=== PATIENT | female | born 1950 | race African-American/Black ===

== ENCOUNTER → 2024-03-19 15:33 | Outpatient (REF) | payer OTHER, SELFPAY | LOC: RAD 15:33 | PROVIDERS: ATTENDING PHYSICIAN Family Medicine; REFERRING PHYSICIAN Chiropractor | DX: R26.9 Unspecified abnormalities of gait and mobility (principal); R42 Dizziness and giddiness | CPT/HCPCS: 70450 ==

== ENCOUNTER 2024-09-29 19:37 | Emergency (ER) | payer OTHER, SELFPAY ==
[2024-09-29] VITALS (7 sets, daily range): BP systolic 118–145; BP diastolic 65–89; BMI 32.1
[2024-09-29 20:33] LABS: Urine Albumin 3+ (Neg - Trace); Urine Bilirubin Negative (Negative); Urine Character Cloudy (Clear); Urine Color Amber; Urine Glucose Negative (Negative); Urine Ketone Negative (Negative); Urine Leukocyte 3+ (Negative); Urine Nitrite Negative (Negative); Urine Occult Blood 4+ (Negative); Urine Specific Gravity 1.015 (<1.030); Urine Urobilinogen Negative (Neg - 1+); Urine pH 6.5 (5.0-9.0)
[2024-09-29 20:35] LABS: % Basophils 0.3 % (0-2); % Eosinophils 2.1 % (0-6); % Immature Granulocytes 0.2 % (0-0.5); % Lymphocytes 47.1 % (20.5-51.1); % Monocytes 9.4 % (1.7-9.3); % Neutrophils 40.9 % (42.2-75.2); Absolute Eosinophils 0.1 10^3/uL (0-0.7); Absolute Lymphocytes 2.7 10^3/uL (1.2-3.4); Absolute Monocytes 0.5 10^3/uL (0.1-0.6); Absolute Neutrophils 2.3 10^3/uL (1.4-6.5); Hematocrit 40.8 % (37.0-47.0); Hemoglobin 13.1 g/dL (12.0-16.0); Mean Corp Hgb Conc. 32.1 g/dL (33.0-37.0); Mean Corpuscular Hgb 23.2 pg (27.0-31.0); Mean Corpuscular Volume 72.3 fL (81.0-99.0); Mean Platelet Volume 10.7 fL (7.4-10.4); Nucleated Red Blood Cells % 0 %; Platelet Count 255 10^3/uL (130-400); Red Blood Cell Count 5.64 10^6/uL (4.20-5.40); Red Cell Dist. Width 16.2 % (11.5-14.5); White Blood Cell Count 5.7 10^3/uL (4.8-10.8)
[2024-09-29 20:41] LABS: Urine Red Blood Cell >100 /HPF (0-2); Urine Squamous Cell None seen /LPF (Few)
[2024-09-29 20:50] LABS: ALT (SGPT) 17 U/L (0-35); AST (SGOT) 23 U/L (14-36); Albumin 4.3 g/dl (3.5-5.0); Alkaline Phosphatase 98 U/L (38-126); Blood Urea Nitrogen 21 mg/dl (7-17); Calcium 9.6 mg/dl (8.4-10.2); Carbon Dioxide 26 mmol/L (22-30); Chloride 105 mmol/L (98-107); Estimated Creatinine Clearance 38 ml/min; Glucose 111 mg/dl (70-99); Sodium 140 mmol/L (135-145); Total Bilirubin 0.5 mg/dl (0.2-1.3); Total Protein 7.7 g/dl (6.3-8.2); eGFR 47.21
--- NOTE | 2024-09-29 22:38 | ED.GENMED ---
History of Present Illness
General
Chief Complaint: Urinary Symptoms
Source: patient
Exam Limitations: none
Time Seen by Provider: 09/29/24 22:01
Nursing documentation reviewed up to this point in time: agreed with
History of Present Illness
History of Present Illness:
Patient is a 73-year-old female with history of stroke on Eliquis CHF A-fib ablation hypertension hyperlipidemia presents for hematuria. She started with hematuria 12 PM this afternoon. She describes this as pink-tinged no clots. She has no
associated dysuria nausea vomiting back pain abdominal pain fever chills. She does feel that she is emptying her bladder completely. She has had no prior history of hematuria. She has been on Eliquis since 2019 (when she had a cva).
Past History
Past History
ED Past Medical History: Arrthythmia (Atrial fib), CVA (left MCA 2018), HTN, Hypercholesterolemia and Other (significant left vertebral artery stenosis)
ED Past Surgical History: Orthopedic
Social History
Tobacco: Non-smoker
Alcohol: None
Drug: None
Personal:
Living: alone
Employment: Employed
Family History
Family History: Other (reviewed and noncontributory)
Review of Systems
Review of Systems
Allergies reviewed?: Yes
All Other Systems: ROS reviewed and negative except as documented in HPI and ROS
Constitutional: Reports no symptoms; Denies fever, fatigue or chills
Respiratory: Reports no symptoms
Cardiac: Reports no symptoms
ABD/GI: Reports no symptoms; Denies abdominal pain, nausea or vomiting
: Reports bleeding; Denies dysuria, frequency, flank pain, incontinence, urgency or discharge
Musculoskeletal: Reports no symptoms
Skin: Reports no symptoms
Neurological: Reports no symptoms
Psychiatric: Reports no symptoms
Phy Exam
General Physical Exam
General Presentation: no apparent distress
General age: appears stated age
General Skin: warm and dry
General Habitus: normal
General Mental: alert
General Hydration: appears well hydrated
Cardiovascular Exam
Cardiovascular Exam: regular rate/rhythm, no murmur and normal peripheral pulses
Pulmonary Exam
Pulmonary Exam: lungs clear and no respiratory distress
Gastrointestinal Exam
Gastrointestinal Exam: soft and other (no suprapubic tenderness )
Neurological Exam
Neurological Exam: alert and oriented x3
Musculoskeletal Exam
Musculoskeletal Exam: full ROM
Skin Exam
Skin Exam: normal color and warm/dry
Psychiatric Exam
Psychiatric Exam: normal mood/affect
Course
Orders/Labs/Results
Orders:
Orders
09/29/24 20:13
CBC/With Diff [Complete Blood Count/With Diff] Urgent
Comprehensive Metabolic Panel Urgent
Urinalysis Reflex To Culture Urgent
Date Specimen was Collected: 09/29/24
Time Specimen was Collected: 19:40
Urine Microscopic Reflex Cult Urgent
Urine Culture Urgent
DOREEN Source: U
Specimen Description:
Date Specimen was Collected: 09/29/24
Time Specimen was Collected: 19:40
09/29/24 23:24
Fosfomycin [Monurol] 3 gm PO ONCE ONE
Abnormal Lab Results
09/29/24
20:13
RBC 5.64 H 10^6/uL
(4.20-5.40)
MCV 72.3 L fL
(81.0-99.0)
MCH 23.2 L pg
(27.0-31.0)
MCHC 32.1 L g/dL
(33.0-37.0)
RDW 16.2 H %
(11.5-14.5)
MPV 10.7 H fL
(7.4-10.4)
Neutrophils % 40.9 L %
(42.2-75.2)
Monocytes % 9.4 H %
(1.7-9.3)
BUN 21 H mg/dl
(7-17)
Creatinine 1.2 H mg/dL
(0.6-1.0)
Glucose 111 H mg/dl
(70-99)
Ur Occult Blood Reflex 4+ A
(Negative)
Leukocyte Esterase Rfl 3+ A
(Negative)
Urine RBC >100 A /HPF
(0-2)
Urine Albumin (Reflex) 3+ A
(Neg - Trace)
09/29/24 20:13
09/29/24 20:13
Vital Signs
Initial and Last Documented VS:
Initial Vital Signs
Temp Pulse Resp BP Pulse Ox
98 F 83 20 145/89 96
09/29/24 19:52 09/29/24 19:52 09/29/24 19:52 09/29/24 19:52 09/29/24 19:52
Last Documented Vital Signs
Temp Pulse Resp BP Pulse Ox
98 F 87 20 127/71 98
09/29/24 19:52 09/29/24 20:41 09/29/24 19:52 09/29/24 23:00 09/29/24 23:45
Web Application Developer consulted with Physician
Web Application Developer consulted with physician?: Yes
Name of Physician Consulted: Mary
MDM/Problems Addressed
Differential Diagnosis Includes:
not limited to: hematuria, uti
MDM/Problems Addressed:
Patient with hematuria since 12 PM no other symptoms. she is on Eliquis. Urinalysis shows greater than 100/hpf RBCs with 3+ leuks.
Hematuria is pink-tinged no clots as per patient. She is in no acute distress pt is well-appearing.
Patient with no abdominal pain nausea vomiting no fever chills. Abdomen soft nontender she does feel that she is emptying her bladder normally discussed return if any worsening of symptoms.
Will cover with antibiotics(patient is allergic to cephalosporins other antibiotics considered however with patient's age will order one-time dose of fosfomycin) with close follow-up with family doctor and urology. pt to continue on eliquis
Chronic conditions affecting care:
eliquis for cva history
*Critical Care Note
Total Time (30-74mins, 75-104mins- exclusive of procedures): Not Applicable
ED Attending Note
-
Portions of this chart may have been created with voice recognition software.� Occasional wrong word or��sound alike� substitutions may have occurred due to the inherent limitations of voice recognition software.
Discharge Plan
Departure
Patient Disposition: Home (Routine Discharge)
Date of Disposition: 09/29/24
Time of Disposition: 23:24
Patient with high blood pressure during this ER visit?: Yes
Covid-19: Not Applicable
Discharge Problem:
Hematuria
Instructions: Blood in the Urine (Hematuria), Adult (DC), BLOOD PRESSURE
Prescriptions:
No Action
amlodipine 5 MG tablet
5 mg PO DAILY Qty: 30 11RF
ascorbic acid (vitamin C) [Vitamin C] 1,000 MG tablet
500 mg PO BID
lorazepam 0.5 mg Tablet
0.5 mg PO BID PRN (Reason: anxiety)
Patient Comments:
04/06/2023: last filled , 30 tabs for 15 days from [facility]
cyanocobalamin (vitamin B-12) [Vitamin B-12] 1,000 mcg Tablet
1,000 mcg PO DAILY
pyridoxine (vitamin B6) [Vitamin B-6] 50 mg Tablet
50 mg PO DAILY
irbesartan 150 mg tablet
150 mg PO QPM
Medical Marijuana
1 drp PO DAILY PRN (Reason: anxiety)
Patient Comments:
05/26/2022: Pt uses a tintcure; [facility] [phone]
lutein-zeaxanthin 25-5 mg Capsule
1 cap PO DAILY
carvedilol 12.5 mg tablet
12.5 mg PO BID
furosemide 40 MG tablet
40 mg PO DAILY PRN (Reason: when working @ home [ankle edema])
cholecalciferol (vitamin D3) [Vitamin D3] 25 mcg (1,000 unit) Capsule
25 mcg PO DAILY
ezetimibe 10 MG tablet
10 mg PO HS
Eliquis 5 MG tablet
5 mg PO BID
prednisolone acetate 1 % drops,suspension
1 drp BOTH EYES DAILY
Rx Instructions:
04/29/23 x one month
Referrals:
Bharat Olmos MD [Active] -
Clay Gudino DO [Family Provider] -
Activity Restrictions/Additional Instructions:
As discussed you have blood in your urine. You were treated for possible infection. You are given a one-time dose of antibiotic called fosfomycin.
Stay well-hydrated. Call urology tomorrow for appointment as soon as possible. Return if any worsening of symptoms of worsening blood in urine nausea vomiting fever chills abdominal pain back pain or any further concerns.You may continue Eliquis
at this time
Interventions
Interventions:
*Risk Screen - Suicide Last Done: 09/29/24 19:52
*General Assessment Last Done: 09/29/24 19:52
*Neglect/Abuse Screening Last Done: 09/29/24 19:52
*ED- Fall Risk Assessment Last Done: 09/29/24 19:52
*ED COVID-19 Vaccine History Last Done: 09/29/24 19:52
ED-Female Genitourinary Assessment Last Done: 09/29/24 20:42
Discharge Date and Time
Print Language: TURKISH
[2024-09-29] MEDS: MONUROL 3 GM PO (23:53)
== END 2024-09-30 00:05 | disposition home or self-care (01) ==
LOC: EMR 19:37
PROVIDERS: Emergency Medicine; EMERGENCY PHYSICIAN Emergency Medicine; FAMILY PHYSICIAN Family Medicine
DX: R31.9 Hematuria, unspecified (principal); I11.0 Hypertensive heart disease with heart failure; I50.9 Heart failure, unspecified; E78.00 Pure hypercholesterolemia, unspecified; Z86.73 Personal history of transient ischemic attack (TIA), and cerebral infarction without residual deficits; Z79.01 Long term (current) use of anticoagulants
CPT/HCPCS: 99283; 80053; 81003; 81015; 85025; 87086

== ENCOUNTER 2024-10-02 08:20 | Emergency (ER) | payer OTHER, SELFPAY ==
[2024-10-02] VITALS (9 sets, daily range): BP systolic 105–166; BP diastolic 53–91; BMI 31.8
--- NOTE | 2024-10-02 08:53 | EDRN ---
Dr. Ellington in room w/ pt at this time.
--- NOTE | 2024-10-02 08:58 | ED.GENMED ---
History of Present Illness
General
Chief Complaint: Flank Pain
Source: patient and family
Exam Limitations: none
Time Seen by Provider: 10/02/24 08:48
Nursing documentation reviewed up to this point in time: agreed with
History of Present Illness
History of Present Illness:
73-year-old female presents emergency department due to right flank pain that began 2 hours ago. She was seen on Monday for hematuria. She was treated with fosfomycin discharge. She stopped her Eliquis for 1 day. She denies any further bleeding.
No nausea vomiting or fevers.
Past History
Past History
ED Past Medical History: Arrthythmia (Atrial fib), CVA (left MCA 2019), HTN, Hypercholesterolemia and Other (significant left vertebral artery stenosis)
ED Past Surgical History: Gynecological (Hysterectomy), Orthopedic and Tonsilectomy
Social History
Tobacco: Non-smoker
Alcohol: None
Drug: None
Personal:
Living: alone
Employment: Employed
Family History
Family History: Other (reviewed and noncontributory)
Review of Systems
Review of Systems
Allergies reviewed?: Yes
All Other Systems: Not applicable
Constitutional: Reports no symptoms
EENT: Reports no symptoms
Respiratory: Reports no symptoms
Cardiac: Reports no symptoms
ABD/GI: Reports no symptoms
: Reports flank pain
Musculoskeletal: Reports no symptoms
Skin: Reports no symptoms
Neurological: Reports no symptoms
Endocrine: Reports no symptoms
Hematologic/Lymphatic: Reports no symptoms
Psychiatric: Reports no symptoms
Phy Exam
Physical Exam
Physical Exam:
Physical Exam
General: no apparent distress, not acutely ill
Neck: supple. no meningeal signs. normal posterior pharynx
Heart: s1/s2 regular rate and rhythm, no murmur. equal radial
pulses.
HEENT: Pupils equal round reactive to light, EOMI
Lungs: no acute respiratory distress. clear bilaterally
Abdomen: normal bowel sounds. not tender. no CVAT
Neuro: alert and oriented. no focal neurological deficits cranial nerves II through XII intact
Skin: no rash
Psychiatric: well kept. interactive and cooperative
Extremities: no edema. no calf tenderness. negative homans. good distal pulses
Scores
Heart Score for Chest Pain Patients
STEMI patient?: No
History: Slightly or Non-Suspicious
ECG: Nonspecific Repolarization
Age: >/= 65 years
Risk Factors: 1 or 2 Risk Factors
Troponin: </= Normal Limit
Heart Score for Chest Pain Patients: 4
Heart Score Risk: 20.3% MACE over next 6 weeks
Course
Orders/Labs/Results
Orders:
Orders
10/02/24 08:51
CT Abd/pel Without Iv Or Oral Urgent
Comment:
Reason For Exam: right flank pain
IV Insert/Care/Rem.- Treatment PRN
Urinalysis Reflex To Culture Urgent
Date Specimen was Collected: 10/02/24
Time Specimen was Collected: 09:04
10/02/24 09:30
Complete Blood Count/With Diff Urgent
Comprehensive Metabolic Panel Urgent
10/02/24 09:37
Morphine Sulfate 4 mg IV NOW STA
Ondansetron Injectable [Zofran] 4 mg IV NOW STA
10/02/24 09:38
Morphine Sulfate 4 mg .ROUTE .STK-MED ONE
Ondansetron Injectable [Zofran] 4 mg .ROUTE .STK-MED ONE
10/02/24 10:31
EKG [Electrocardiogram (*1)] Urgent
Reason for Study: Chest Pain
EKG- Treatment ONCE
10/02/24 10:46
Troponin I Urgent
10/02/24 12:24
Urinalysis Reflex To Culture Urgent
Date Specimen was Collected: 10/02/24
Time Specimen was Collected: 12:22
Urine Microscopic Reflex Cult Urgent
Urine Culture Urgent
DOREEN Source: U
Specimen Description:
Date Specimen was Collected: 10/02/24
Time Specimen was Collected: 12:22
10/02/24 12:27
EKG- Treatment ONCE
10/02/24 13:41
Troponin I Urgent
10/02/24 13:45
Electrocardiogram (*1) Urgent
Reason for Study: Chest Pain
Abnormal Lab Results
10/02/24 10/02/24
09:30 12:24
RBC 5.63 H 10^6/uL
(4.20-5.40)
MCV 73.4 L fL
(81.0-99.0)
MCH 23.1 L pg
(27.0-31.0)
MCHC 31.5 L g/dL
(33.0-37.0)
RDW 16.3 H %
(11.5-14.5)
Lymphocytes % 19.9 L %
(20.5-51.1)
Glucose 132 H mg/dl
(70-99)
Urine Ketones 1+ A
(Negative)
Ur Occult Blood Reflex 4+ A
(Negative)
Leukocyte Esterase Rfl 2+ A
(Negative)
Urine RBC >100 A /HPF
(0-2)
Urine Albumin (Reflex) 2+ A
(Neg - Trace)
10/02/24 09:30
10/02/24 09:30
Vital Signs
Initial and Last Documented VS:
Initial Vital Signs
Temp Pulse Resp BP Pulse Ox
98.2 F 76 18 166/91 98
10/02/24 08:23 10/02/24 08:23 10/02/24 08:23 10/02/24 08:23 10/02/24 08:23
Last Documented Vital Signs
Temp Pulse Resp BP Pulse Ox
98.2 F 67 19 131/75 93
10/02/24 08:23 10/02/24 14:00 10/02/24 14:00 10/02/24 14:00 10/02/24 14:00
MDM/Problems Addressed
Differential Diagnosis Includes:
ACS, PE, kidney stone, UTI
MDM/Problems Addressed:
73-year-old female with right ureteral calculus, no signs UTI. Patient had episode of about 1 to 2 minutes of chest pressure. Dissipated without intervention. Serial troponins negative. Patient feels well and will follow-up with cardiology.
Chest pain hotline.
Chronic conditions affecting care: Arrhythmia
*Radiology
Radiology exam reviewed: radiology read reviewed (CT abdomen pelvis shows mild right hydronephrosis secondary to 5 mm right UVJ stone, benign bilateral adrenal hyperplasia, moderate fecal material)
*Pulse Oximetry
Patient hypoxic: no
*EKG
Interpreted by ED Provider?: Yes
EKG Intrepretation Date: 10/02/24
EKG Intrepretation Time: 10:38
Interpretation: abnormal
Comparison EKG: no changes
Heart Rate: 66
Rate: normal
Rhythm: sinus and PVC's
[place]: normal axis
Interval: normal interval
QRS Pattern: left vent hypertrophy
Ischemia: no ischemia
*[facility] Staff Nurse Interpretation
Rate: normal
Interpretation: normal
Heart Rate: 67
Rhythm: sinus
*Critical Care Note
Total Time (30-74mins, 75-104mins- exclusive of procedures): Not Applicable
Data Reviewed
Review of Other/Old Records Reveals: Labs (Creatinine 1.2 on 09/29/2024, multiple negative troponins)
Source: records
Further Testing Considered But Not Given:
CT chest not indicated
Patient Management
Social determinants of health affecting care: Living situation and Strong social support
Escalation/DeEscalation of care consider admission/obs:
Admit not indicated
ED Attending Note
-
Portions of this chart may have been created with voice recognition software.� Occasional wrong word or��sound alike� substitutions may have occurred due to the inherent limitations of voice recognition software.
Discharge Plan
Departure
Patient Disposition: Home (Routine Discharge)
Date of Disposition: 10/02/24
Time of Disposition: 14:26
Patient with high blood pressure during this ER visit?: Yes
Condition: Good
Discharge Problem:
Calculus of distal right ureter, Chest pain
Instructions: Kidney Stones (DC), How to Strain Your Urine, Chest Pain DCA Follow Up, BLOOD PRESSURE
Prescriptions:
No Action
amlodipine 5 MG tablet
5 mg PO DAILY Qty: 30 11RF
lorazepam 0.5 mg Tablet
0.5 mg PO DAILYPRN PRN (Reason: anxiety)
cyanocobalamin (vitamin B-12) [Vitamin B-12] 1,000 mcg Tablet
1,000 mcg PO DAILY
pyridoxine (vitamin B6) [Vitamin B-6] 50 mg Tablet
50 mg PO DAILY
irbesartan 150 mg tablet
150 mg PO QPM
furosemide 40 MG tablet
40 mg PO Q48H
ezetimibe 10 MG tablet
10 mg PO HS
Eliquis 5 MG tablet
5 mg PO BID
carvedilol 12.5 mg Tablet
12.5 mg PO BID
valacyclovir 1 gram Tablet
1,000 mg PO BID
Rx Instructions:
for 7 days starting 09/08/24
ascorbic acid (vitamin C) [Vitamin C] 500 mg Tablet
500 mg PO BID
cholecalciferol (vitamin D3) [Vitamin D3] 25 mcg (1,000 unit) Tablet
25 mcg PO DAILY
Systane Complete 0.6 % Drops
1 drp BOTH EYES TID
lutein-zeaxanthin 20 mg- 1,000 mcg Capsule
1 cap PO BID
Medical Marijuana Stick Rub
1 applic topical DAILYPRN PRN (Reason: top of knees)
acetaminophen 500 mg Tablet
1,000 mg PO Q6HPRN PRN (Reason: head ache)
Referrals:
Clay Gudino, DO [Family Provider] -
Stand Alone Forms: Return to Work
Interventions
Interventions:
*Risk Screen - Suicide Last Done: 10/02/24 09:30
*General Assessment Last Done: 10/02/24 09:30
*Neglect/Abuse Screening Last Done: 10/02/24 09:30
*ED- Fall Risk Assessment Last Done: 10/02/24 09:30
*ED COVID-19 Vaccine History Last Done: 10/02/24 09:30
*Nursing Disposition Last Done: 10/02/24 14:58
RV-Gxlgth-Vqdghcbetx Assessment Last Done: 10/02/24 09:30
ED-Female Genitourinary Assessment Last Done: 10/02/24 09:30
Discharge Date and Time
Discharge Date/Time: 10/02/24 14:58
Print Language: SLOVAK
[2024-10-02 09:40] LABS: % Basophils 0.6 % (0-2); % Eosinophils 0.4 % (0-6); % Immature Granulocytes 0.1 % (0-0.5); % Lymphocytes 19.9 % (20.5-51.1); % Monocytes 6.1 % (1.7-9.3); % Neutrophils 72.9 % (42.2-75.2); Absolute Lymphocytes 1.4 10^3/uL (1.2-3.4); Absolute Monocytes 0.4 10^3/uL (0.1-0.6); Absolute Neutrophils 5.1 10^3/uL (1.4-6.5); Hematocrit 41.3 % (37.0-47.0); Mean Corp Hgb Conc. 31.5 g/dL (33.0-37.0); Mean Corpuscular Hgb 23.1 pg (27.0-31.0); Mean Corpuscular Volume 73.4 fL (81.0-99.0); Mean Platelet Volume 10.3 fL (7.4-10.4); Nucleated Red Blood Cells % 0 %; Platelet Count 253 10^3/uL (130-400); Red Blood Cell Count 5.63 10^6/uL (4.20-5.40); Red Cell Dist. Width 16.3 % (11.5-14.5)
[2024-10-02] MEDS: MORPHINE SULFATE 4 MG IV (09:44)
[2024-10-02] MEDS: ZOFRAN 4 MG IV (09:44)
[2024-10-02 09:51] LABS: ALT (SGPT) 18 U/L (0-35); AST (SGOT) 24 U/L (14-36); Alkaline Phosphatase 115 U/L (38-126); Blood Urea Nitrogen 16 mg/dl (7-17); Calcium 9.5 mg/dl (8.4-10.2); Carbon Dioxide 29 mmol/L (22-30); Chloride 107 mmol/L (98-107); Glucose 132 mg/dl (70-99); Potassium 3.9 mmol/L (3.5-5.1); Sodium 143 mmol/L (135-145); Total Bilirubin 0.6 mg/dl (0.2-1.3); Total Protein 7.2 g/dl (6.3-8.2); eGFR > 60.00
--- NOTE | 2024-10-02 10:07 | EDRN ---
Urine quantity in spec not enough so this RN requested another spec from pt.
--- NOTE | 2024-10-02 10:50 | EDRN ---
This nurse received report on pt that developed chest pain at devin 10:30 that was a 9/10, substernal and heavy. Troponin drawn and EKG done at that time by Rui. Pt placed on potline monitor., This RN saw pt at 10:50 and pain was 4/10,
still heavy and substernal. Daughter by brandoner. R flank pain remains at 2/10.
[2024-10-02 11:24] LABS: Troponin I < 0.012 ng/ml
[2024-10-02 13:19] LABS: Urine Albumin 2+ (Neg - Trace); Urine Bilirubin Negative (Negative); Urine Character Slightly Cloudy (Clear); Urine Color Yellow; Urine Glucose Negative (Negative); Urine Ketone 1+ (Negative); Urine Leukocyte 2+ (Negative); Urine Nitrite Negative (Negative); Urine Occult Blood 4+ (Negative); Urine Urobilinogen Negative (Neg - 1+)
[2024-10-02 14:12] LABS: Troponin I 0.012 ng/ml
--- NOTE | 2024-10-02 14:13 | EDRN ---
Pt given water after asking Dr. Ellington if okay. Pt is awaiting repeat trop.
[2024-10-02 14:15] LABS: Urine Amorphous Seen; Urine Squamous Cell 26-30 /LPF (Few)
[2024-10-02 14:16] LABS: Urine Mucus Few
[2024-10-02 14:17] LABS: Urine Red Blood Cell >100 /HPF (0-2)
== END 2024-10-02 14:58 | disposition home or self-care (01) ==
LOC: EMR 08:20
PROVIDERS: EMERGENCY PHYSICIAN Emergency Medicine; FAMILY PHYSICIAN Family Medicine
DX: N13.2 Hydronephrosis with renal and ureteral calculous obstruction (principal); R07.89 Other chest pain; I10 Essential (primary) hypertension
CPT/HCPCS: 99285; 96374; 96375; 74176; 80053; 81003; 81015; 84484; 85025; 87086; 93005

== ENCOUNTER 2024-10-22 21:44 | Emergency (ER) | payer OTHER, SELFPAY ==
[2024-10-22] VITALS (7 sets, daily range): BP systolic 137–167; BP diastolic 68–91; PULSE 68–85; BMI 34.5
[2024-10-22 22:09] LABS: Hemoglobin 12.8 g/dL (12.0-16.0); Mean Corpuscular Hgb 23.5 pg (27.0-31.0); Mean Corpuscular Volume 73.4 fL (81.0-99.0); Mean Platelet Volume 10.4 fL (7.4-10.4); Platelet Count 240 10^3/uL (130-400); Red Blood Cell Count 5.45 10^6/uL (4.20-5.40); White Blood Cell Count 5.7 10^3/uL (4.8-10.8)
[2024-10-22 22:23] LABS: ALT (SGPT) 23 U/L (0-35); AST (SGOT) 33 U/L (14-36); Alkaline Phosphatase 115 U/L (38-126); Blood Urea Nitrogen 18 mg/dl (7-17); Calcium 9.7 mg/dl (8.4-10.2); Carbon Dioxide 30 mmol/L (22-30); Chloride 105 mmol/L (98-107); Estimated Creatinine Clearance 57 ml/min; Glucose 119 mg/dl (70-99); Potassium 4.7 mmol/L (3.5-5.1); Sodium 140 mmol/L (135-145); Total Bilirubin 0.6 mg/dl (0.2-1.3); Total Protein 7.8 g/dl (6.3-8.2); eGFR > 60.00
[2024-10-22 22:30] LABS: Troponin I < 0.012 ng/ml
--- NOTE | 2024-10-22 22:31 | ED.GENMED ---
History of Present Illness
<GENOVEVA Dominguez - Last Filed: 10/23/24 16:16>
General
Chief Complaint: Dizziness
Source: patient
Time Seen by Provider: 10/22/24 21:46
Nursing documentation reviewed up to this point in time: agreed with
History of Present Illness
History of Present Illness:
Patient is a 73-year-old female who presents to the ER for evaluation of dizziness. Patient reports around 1:30 PM she had an episode of lightheadedness/dizziness when she was getting out of the car but that quickly resolved. She reports this
evening she had another episode while standing up from a chair. She reports she felt spinning but the room was not necessarily spinning and she felt a little' off,' when she walks. She had no associated headache blurry vision nausea vomiting chest
pain shortness of breath.
She did have a regular family doctor appointment today and mentioned the dizziness to her doctor however had no episodes at office.
She does report that she has had vertigo but this felt different.
Past History
<GENOVEVA Dominguez - Last Filed: 10/23/24 16:16>
Past History
ED Past Medical History: Arrthythmia (Atrial fib), CVA (left MCA 2019), HTN, Hypercholesterolemia and Other (significant left vertebral artery stenosis)
ED Past Surgical History: Gynecological (Hysterectomy), Orthopedic and Tonsilectomy
Social History
Tobacco: Non-smoker
Alcohol: None
Drug: None
Personal:
Living: alone
Employment: Employed
Family History
Family History: Other (reviewed and noncontributory)
Review of Systems
<GENOVEVA Dominguez - Last Filed: 10/23/24 16:16>
Review of Systems
All Other Systems: ROS reviewed and negative except as documented in HPI and ROS
Constitutional: Reports no symptoms
Respiratory: Reports no symptoms
Cardiac: Reports no symptoms
ABD/GI: Reports no symptoms
: Reports no symptoms
Skin: Reports no symptoms
Neurological: Reports dizzy; Denies headache, weakness or numbness
Hematologic/Lymphatic: Reports no symptoms
Psychiatric: Reports no symptoms
Phy Exam
<GENOVEVA Dominguez - Last Filed: 10/23/24 16:16>
General Physical Exam
General Presentation: no apparent distress
General age: appears stated age
General Skin: warm and dry
General Habitus: normal
General Mental: alert
General Hydration: appears well hydrated
Cardiovascular Exam
Cardiovascular Exam: regular rate/rhythm, no murmur and normal peripheral pulses
Pulmonary Exam
Pulmonary Exam: lungs clear and no respiratory distress
Neurological Exam
Neurological Exam: alert, oriented x3, no motor deficits, no sensory deficits and speech normal
[place] Coma Scale
Eye Opening: Spontaneous
Verbal Response: Oriented
Motor Response: Obeys Commands
GCS Total Score: 15
Cerebellar
Cerebellar Function: normal finger to nose
Musculoskeletal Exam
Musculoskeletal Exam: full ROM
Skin Exam
Skin Exam: normal color and warm/dry
Course
<GENOVEVA Dominguez - Last Filed: 10/23/24 16:16>
Orders/Labs/Results
Orders:
Orders
10/22/24 21:46
Electrocardiogram (*1) Urgent
Reason for Study: Vertigo / Dizzy
EKG- Treatment ONCE
10/22/24 21:57
Complete Blood Count/With Diff Urgent
Comprehensive Metabolic Panel Urgent
Troponin I Urgent
10/22/24 23:52
Orthostatic VS- Treatment ONCE
10/23/24 00:20
Urinalysis Reflex To Culture Urgent
Date Specimen was Collected: 10/23/24
Time Specimen was Collected: 00:17
Urine Microscopic Reflex Cult Urgent
Urine Culture Urgent
DOREEN Source: U
Specimen Description:
Date Specimen was Collected: 10/23/24
Time Specimen was Collected: 00:17
10/23/24 01:04
CT Head W/o Iv Contrast Urgent
Comment:
Reason For Exam: dizzy
10/23/24 01:31
0.9% Sodium Chloride 500 ml [Nss] 500 ml IV BOLUS
Abnormal Lab Results
10/22/24 10/23/24
21:57 00:20
RBC 5.45 H 10^6/uL
(4.20-5.40)
MCV 73.4 L fL
(81.0-99.0)
MCH 23.5 L pg
(27.0-31.0)
MCHC 32.0 L g/dL
(33.0-37.0)
RDW 16.0 H %
(11.5-14.5)
Neutrophils % 35.7 L %
(42.2-75.2)
Lymphocytes % 51.2 H %
(20.5-51.1)
Monocytes % 9.6 H %
(1.7-9.3)
BUN 18 H mg/dl
(7-17)
Glucose 119 H mg/dl
(70-99)
Ur Occult Blood Reflex 1+ A
(Negative)
Leukocyte Esterase Rfl 1+ A
(Negative)
Urine RBC 3-6 A /HPF
(0-2)
Urine Bacteria (Reflex) Few A
(Negative)
10/22/24 21:57
10/22/24 21:57
Vital Signs
Initial and Last Documented VS:
Initial Vital Signs
Temp Pulse Resp BP Pulse Ox
97.8 F 73 24 167/91 98
10/22/24 21:47 10/22/24 21:47 10/22/24 21:47 10/22/24 21:47 10/22/24 21:47
Last Documented Vital Signs
Temp Pulse Resp BP Pulse Ox
97.8 F 64 13 145/69 98
10/22/24 21:47 10/23/24 02:00 10/23/24 02:15 10/23/24 02:00 10/23/24 02:15
[employer] Grade Teacher consulted with Physician
[employer] Grade Teacher consulted with physician?: Yes
Name of Physician Consulted: [email or web address]
<Vida Perez MD - Last Filed: 10/23/24 02:34>
Orders/Labs/Results
Orders:
Orders
10/22/24 21:46
Electrocardiogram (*1) Urgent
Reason for Study: Vertigo / Dizzy
EKG- Treatment ONCE
10/22/24 21:57
Complete Blood Count/With Diff Urgent
Comprehensive Metabolic Panel Urgent
Troponin I Urgent
10/22/24 23:52
Orthostatic VS- Treatment ONCE
10/23/24 00:20
Urinalysis Reflex To Culture Urgent
Date Specimen was Collected: 10/23/24
Time Specimen was Collected: 00:17
Urine Microscopic Reflex Cult Urgent
Urine Culture Urgent
DOREEN Source: U
Specimen Description:
Date Specimen was Collected: 10/23/24
Time Specimen was Collected: 00:17
10/23/24 01:04
CT Head W/o Iv Contrast Urgent
Comment:
Reason For Exam: dizzy
10/23/24 01:31
0.9% Sodium Chloride 500 ml [Nss] 500 ml IV BOLUS
Abnormal Lab Results
10/22/24 10/23/24
21:57 00:20
RBC 5.45 H 10^6/uL
(4.20-5.40)
MCV 73.4 L fL
(81.0-99.0)
MCH 23.5 L pg
(27.0-31.0)
MCHC 32.0 L g/dL
(33.0-37.0)
RDW 16.0 H %
(11.5-14.5)
Neutrophils % 35.7 L %
(42.2-75.2)
Lymphocytes % 51.2 H %
(20.5-51.1)
Monocytes % 9.6 H %
(1.7-9.3)
BUN 18 H mg/dl
(7-17)
Glucose 119 H mg/dl
(70-99)
Ur Occult Blood Reflex 1+ A
(Negative)
Leukocyte Esterase Rfl 1+ A
(Negative)
Urine RBC 3-6 A /HPF
(0-2)
Urine Bacteria (Reflex) Few A
(Negative)
10/22/24 21:57
10/22/24 21:57
Vital Signs
Initial and Last Documented VS:
Initial Vital Signs
Temp Pulse Resp BP Pulse Ox
97.8 F 73 24 167/91 98
10/22/24 21:47 10/22/24 21:47 10/22/24 21:47 10/22/24 21:47 10/22/24 21:47
Last Documented Vital Signs
Temp Pulse Resp BP Pulse Ox
97.8 F 64 13 145/69 98
10/22/24 21:47 10/23/24 02:00 10/23/24 02:15 10/23/24 02:00 10/23/24 02:15
<GENOVEVA Dominguez - Last Filed: 10/23/24 16:16>
MDM/Problems Addressed
MDM/Problems Addressed:
As documented patient is a 73-year-old female who complained of several episodes of dizziness with standing and changing positions. She initially had an episode prior to seeing her family doctor for regular visit today. At the appointment she had
no symptoms her physician was not concerned. She reports episode happened again after standing out of a chair. She denied an actual sensation that room was spinning she felt however simply dizzy and a little off balance. She had no associated
headache nausea vomiting blurred vision. She presented here feeling well and remained asymptomatic here in the ER. She does report she has a history vertigo in the past but this felt slightly different. Patient has a normal neurological exam
however will order ct.
Care of pt transferred to ED attending physician.
<GENOVEVA Dominguez - Last Filed: 10/23/24 16:16>
*Radiology
Radiology exam reviewed: radiology read reviewed
*Pulse Oximetry
Patient hypoxic: no
*EKG
Interpreted by ED Provider?: Yes
Heart Rate: 68
Rate: normal
Rhythm: sinus
Ischemia: no ischemia
*Critical Care Note
Total Time (30-74mins, 75-104mins- exclusive of procedures): Not Applicable
ED Attending Note
<GENOVEVA Dominguez - Last Filed: 10/23/24 16:16>
-
Portions of this chart may have been created with voice recognition software.� Occasional wrong word or��sound alike� substitutions may have occurred due to the inherent limitations of voice recognition software.
<Vida Perez MD - Last Filed: 10/23/24 02:34>
ED Attending Note
Patient seen and examined by attending physician: Yes
I performed the substantive portion of visit, reviewed & personally made and approve the management plan that is documented in note by myself or ANGELIA.: Yes
ED Attending Note:
I have seen and evaluated the patient with a [id number] encounter. I have spoken to the [MOTION PICTURE PHOTOGRAPHER] and involved in the medical history, the physical exam, medical decision making.
Evaluation and management service: agree unless noted differently below.
Results interpretation: agree unless noted differently below.
73-year-old woman with history of prior CVA presenting to the emergency department dizziness states that today she got up from her car and became lightheaded dizzy. The symptoms resolved. She then got up from a chair and noticed the same symptoms.
She did not pass out. She denies numbness tingling weakness or changes to her speech. She states that she only drinks 4 glasses of water a day maximum. She states that she to her primary care doctor who reassured her. On arrival here patient
states that the dizziness is much better. She denies a room spinning sensation. No numbness tingling. No weakness. No chest pain. On my evaluation patient is resting comfortably. She does have mildly dry oral mucosa but has equal strength in
upper and lower extremities with sensation intact and normal [id number]. This could be secondary to orthostatic. Considered posterior CVA though less likely. After shared decision making we will proceed with CT scan. Will give fluids and
reassess symptoms. If symptoms are ongoing despite fluids will admit for MRI and further evaluation.
Patient states symptoms have resolved after the fluids. She ambulated without any recurrent symptoms. CT preliminary read with no acute abnormality though old lacunar infarct in the bilateral basal ganglia. This finding was seen on the CT scan
from March 2024. Will discharge at this time. Patient advised to increase water intake. Patient will follow-up with PCP.
Discharge Plan
Departure
Patient Disposition: Home (Routine Discharge)
Date of Disposition: 10/23/24
Time of Disposition: 02:33
Patient with high blood pressure during this ER visit?: No
Discharge Problem:
Dizziness
Instructions: Dizziness
Prescriptions:
No Action
amlodipine 5 MG tablet
5 mg PO DAILY Qty: 30 11RF
lorazepam 0.5 mg Tablet
0.5 mg PO DAILYPRN PRN (Reason: anxiety)
cyanocobalamin (vitamin B-12) [Vitamin B-12] 1,000 mcg Tablet
1,000 mcg PO DAILY
pyridoxine (vitamin B6) [Vitamin B-6] 50 mg Tablet
50 mg PO DAILY
irbesartan 150 mg tablet
150 mg PO QPM
furosemide 40 MG tablet
40 mg PO Q48H
ezetimibe 10 MG tablet
10 mg PO HS
Eliquis 5 MG tablet
5 mg PO BID
carvedilol 12.5 mg Tablet
12.5 mg PO BID
ascorbic acid (vitamin C) [Vitamin C] 500 mg Tablet
500 mg PO BID
cholecalciferol (vitamin D3) [Vitamin D3] 25 mcg (1,000 unit) Tablet
25 mcg PO DAILY
Systane Complete 0.6 % Drops
1 drp BOTH EYES TID
lutein-zeaxanthin 20 mg- 1,000 mcg Capsule
1 cap PO BID
Medical Marijuana Stick Rub
1 applic topical DAILYPRN PRN (Reason: top of knees)
acetaminophen 500 mg Tablet
1,000 mg PO Q6HPRN PRN (Reason: head ache)
zinc
1 tab PO DAILY
Rx Instructions:
unsure of mg
Referrals:
Clay Gudino, [Family Provider] -
Stand Alone Forms: Return to Work
Interventions
Interventions:
*Risk Screen - Suicide Last Done: 10/22/24 21:50
*General Assessment Last Done: 10/22/24 21:50
*Neglect/Abuse Screening Last Done: 10/22/24 21:50
*ED- Fall Risk Assessment Last Done: 10/22/24 21:50
*ED COVID-19 Vaccine History Last Done: 10/22/24 21:50
*Nursing Disposition Last Done: 10/23/24 03:30
ED- Neurological Assessment Last Done: 10/23/24 02:10
ED- Cardiac Assessment Last Done: 10/23/24 02:10
Discharge Date and Time
Discharge Date/Time: 10/23/24 03:30
Print Language: MONTENEGRIN
[2024-10-22 22:32] LABS: % Basophils 0.9 % (0-2); % Eosinophils 2.6 % (0-6); % Lymphocytes 51.2 % (20.5-51.1); % Monocytes 9.6 % (1.7-9.3); % Neutrophils 35.7 % (42.2-75.2); Absolute Basophils 0.1 10^3/uL (0-0.2); Absolute Eosinophils 0.2 10^3/uL (0-0.7); Absolute Lymphocytes 2.9 10^3/uL (1.2-3.4); Absolute Monocytes 0.6 10^3/uL (0.1-0.6); Absolute Neutrophils 2.1 10^3/uL (1.4-6.5); Nucleated Red Blood Cells % 0 %
[2024-10-23 00:19] VITALS: BP 132/71
[2024-10-23 00:51] LABS: Urine Albumin Negative (Neg - Trace); Urine Bilirubin Negative (Negative); Urine Character Clear (Clear); Urine Color Yellow; Urine Glucose Negative (Negative); Urine Ketone Negative (Negative); Urine Leukocyte 1+ (Negative); Urine Nitrite Negative (Negative); Urine Occult Blood 1+ (Negative); Urine Specific Gravity 1.005 (<1.030); Urine Urobilinogen Negative (Neg - 1+)
[2024-10-23 01:00] VITALS: BP 135/74
[2024-10-23 01:27] LABS: Urine Bacteria Few (Negative); Urine White Cell 0-2 /HPF (0-5)
[2024-10-23] MEDS: NSS 500 IV (01:38)
[2024-10-23 02:00] VITALS: BP 145/69
== END 2024-10-23 03:30 | disposition home or self-care (01) ==
LOC: EMR 21:44
PROVIDERS: Emergency Medicine; Nurse Practitioner; EMERGENCY PHYSICIAN Student in an Organized Health Care Education/Training Program; FAMILY PHYSICIAN Family Medicine
DX: R42 Dizziness and giddiness (principal); I48.91 Unspecified atrial fibrillation; E78.00 Pure hypercholesterolemia, unspecified; I65.02 Occlusion and stenosis of left vertebral artery; I11.0 Hypertensive heart disease with heart failure; I50.9 Heart failure, unspecified; M19.90 Unspecified osteoarthritis, unspecified site; Z86.73 Personal history of transient ischemic attack (TIA), and cerebral infarction without residual deficits; Z79.01 Long term (current) use of anticoagulants; Z88.1 Allergy status to other antibiotic agents; Z88.8 Allergy status to other drugs, medicaments and biological substances
CPT/HCPCS: 99284; 96360; 70450; 80053; 81003; 81015; 84484; 85025; 87086; 93005

== ENCOUNTER 2025-03-06 10:19 | Outpatient (RCR) | payer OTHER, SELFPAY | END 2025-03-06 23:59 | disposition home or self-care (01) | LOC: RPT 10:19 | PROVIDERS: ATTENDING PHYSICIAN Family Medicine | DX: M54.42 Lumbago with sciatica, left side (principal); R42 Dizziness and giddiness; Z73.6 Limitation of activities due to disability; R26.2 Difficulty in walking, not elsewhere classified; M62.81 Muscle weakness (generalized); R26.89 Other abnormalities of gait and mobility; G89.29 Other chronic pain; Z96.651 Presence of right artificial knee joint | CPT/HCPCS: 97110; 97112; 97163; 97530 ==

== ENCOUNTER → 2025-03-24 14:38 | Outpatient (REF) | payer OTHER, SELFPAY | LOC: HWRAD 14:38 | PROVIDERS: ATTENDING PHYSICIAN Nurse Practitioner Family; FAMILY PHYSICIAN Family Medicine | DX: D48.5 Neoplasm of uncertain behavior of skin (principal) | CPT/HCPCS: 76536 ==

== ENCOUNTER 2025-04-08 14:44 | Outpatient (RCR) | payer OTHER, SELFPAY | END 2025-04-08 23:59 | disposition home or self-care (01) | LOC: RPT 14:44 | PROVIDERS: ATTENDING PHYSICIAN Family Medicine | DX: M54.42 Lumbago with sciatica, left side (principal); R42 Dizziness and giddiness; Z73.6 Limitation of activities due to disability; R26.2 Difficulty in walking, not elsewhere classified; M62.81 Muscle weakness (generalized); R26.89 Other abnormalities of gait and mobility; G89.29 Other chronic pain; Z96.651 Presence of right artificial knee joint | CPT/HCPCS: 97110; 97112; 97530 ==

== ENCOUNTER 2025-05-08 12:58 | Outpatient (RCR) | payer OTHER, SELFPAY | END 2025-05-08 23:59 | disposition home or self-care (01) | LOC: RPT 12:58 | PROVIDERS: ATTENDING PHYSICIAN Family Medicine | DX: M54.42 Lumbago with sciatica, left side (principal); R42 Dizziness and giddiness; Z73.6 Limitation of activities due to disability; R26.2 Difficulty in walking, not elsewhere classified; M62.81 Muscle weakness (generalized); R26.89 Other abnormalities of gait and mobility; G89.29 Other chronic pain; Z96.651 Presence of right artificial knee joint | CPT/HCPCS: 97110; 97112; 97530 ==

== ENCOUNTER 2025-05-19 08:37 | Outpatient (RCR) | payer OTHER, SELFPAY | END 2025-05-19 23:59 | disposition home or self-care (01) | LOC: RPT 08:37 | PROVIDERS: ATTENDING PHYSICIAN Family Medicine | DX: M54.42 Lumbago with sciatica, left side (principal); R42 Dizziness and giddiness; Z73.6 Limitation of activities due to disability; R26.2 Difficulty in walking, not elsewhere classified; M62.81 Muscle weakness (generalized); R26.89 Other abnormalities of gait and mobility; G89.29 Other chronic pain; Z96.651 Presence of right artificial knee joint | CPT/HCPCS: 97110; 97530 ==

== ENCOUNTER → 2025-05-26 10:54 | Outpatient (REF) | payer OTHER, SELFPAY | LOC: HWRAD 10:54 | PROVIDERS: ATTENDING PHYSICIAN Physician Assistant Medical; FAMILY PHYSICIAN Family Medicine | DX: T84.038D Mechanical loosening of other internal prosthetic joint, subsequent encounter (principal) | CPT/HCPCS: 73700 ==